=== PATIENT | male | born 1935 | race Caucasian/White ===

== ENCOUNTER 2018-02-22 13:01 | Emergency (ER) | payer OTHER, BC ==
[~2018-02-22] VITALS: Ht 182.9 cm; Wt 105.8 kg
[2018-02-22 13:23] VITALS: Ht 182.9 cm; Wt 105.8 kg
[2018-02-22] MEDS ORDERED: XYLOCAINE 1%/SOD BICARB 20 ML VIAL INFIL ONE (13:45)
--- NOTE | 2018-02-22 14:03 | EMERGENCY ROOM VISIT NOTE ---
ED Visit Note First contact with patient: 13:38 I have seen and examined this patient with Dung Munoz and generally agree with the treatment plan as discussed. Current/Historical Medications Miscellaneous Medications None (Patient States No Home Meds) Allergies Coded Allergies: No Known Allergies (Unverified , NONE, 11/22/10) Vital Signs Date Time Temp Pulse Resp B/P (MAP) Pulse Ox O2 Delivery O2 Flow Rate FiO2 02/22/18 13:23 36.6 72 20 127/66 95 Room Air Departure Information Referrals Dung Way III, M.D. (PCP) Patient Instructions [facility]
[2018-02-22] MEDS ORDERED: DIPHTHERIA/TETANUS/PERTUSSIS 0.5 ML SYR/VIAL IM. ONE (15:00)
[2018-02-22 15:27] VITALS: BP 139/76; PULSE 58; TEMP 36.6; O2SAT 98
--- NOTE | 2018-02-22 18:03 | EMERGENCY ROOM VISIT NOTE ---
ED Visit Note First contact with patient: 13:38 Chief Complaint: I cut my left ring finger. History of Present Illness: Mr. Murphy is a 82-year-old white male who ambulates into the ED complaining of left ring finger laceration. Patient reports approximately 1 hour ago he accidentally cut the distal aspect of the palmar surface of the distal phalanx with a pen knife. He reports he attempted to control bleeding prior to arrival at the hospital but has been unsuccessful; he reports he is on Xarelto for his atrial fibrillation. He also reports he did not clean his wound. Associated with his wound he reports she has a stinging pain over the distal left ring finger. He rates his discomfort 2/10. His pain is non-radiating. His pain worsens with palpation. He has not identified any alleviating factors related to the pain. He reports she has not taken any medication for pain prior to arrival at the hospital. He denies any associated symptoms including finger weakness/numbness/tingling Review of Systems: As noted above in history of present illness. Past Medical History: As previously noted. Current Medications: As previously noted. Allergies to Medications: Patient denies. Social History: Patient is not currently employed; he feels safe in his home environment; he denies tobacco and alcohol use. Tetanus Immunization Status: Patient reports up-to-date. Physical Examination: Vital Signs: Date Time Temp Pulse Resp B/P (MAP) Pulse Ox O2 Delivery O2 Flow Rate FiO2 02/22/18 15:27 36.6 58 16 139/76 98 02/22/18 13:23 36.6 72 20 127/66 95 Room Air GENERAL: 82-year-old male in mild distress due to pain, nontoxic-appearing, afebrile and hemodynamically stable. NEUROLOGICAL: Awake, alert and oriented to person, place and time. Answering questions appropriately and following commands. SKIN: Warm, dry and pink. Left ring finger: 2.8 cm full-thickness laceration over the distal phalanx of the finger with active bleeding. LEFT RING FINGER: Soft tissue injury as noted above under SKIN. No gross bony deformity. Full range of motion in flexion and extension of the MCP, PIP and DIP joints against resistance. Able to distinguish light sensations to all dermatomes. Capillary refill is brisk. ED Course: Patient is assessed as noted above. Patient's medication list was reviewed Wound Repair: Complexity: Basic Verbal consent was obtained after the risks and benefits were explained. The skin was prepped with betadine and a sterile field set. Wound edges of the wound was anesthetized with 2.1 ml buffered 1% lidocaine. The wound was explored for foreign bodies and none found. Copious irrigation was performed using sterile saline. With direct pressure the bleeding subsided. Debridement was not performed. The wound edges were approximated using 5-0 Ethilon with 6 simple interrupted sutures. Hemostasis and excellent approximation was achieved. Antibacterial ointment and a sterile dressing applied. No complications and the patient tolerated the procedure well. Patient was educated about tonight's findings and instructed on his treatment plan; he verbalizes understanding and agreement with this plan. Clinical Impression: Laceration of the left index finger Disposition: Patient discharged home in stable condition; prior to departure he was reassessed and subjectively reported he was pain-free. Plan: Comfort measures, wound care, and signs of infection were discussed with the patient. Patient was encouraged to follow-up with PCP or return to the ED for signs of infection and/or suture removal in 10-12 days.
== END 2018-02-22 15:31 | disposition home or self-care (01) ==
LOC: C.EDB 13:03 → C.EDD 15:31
DX: S61.215A Laceration without foreign body of left ring finger without damage to nail, initial encounter (principal); W26.0XXA Contact with knife, initial encounter; I48.91 Unspecified atrial fibrillation; Z79.01 Long term (current) use of anticoagulants; Z23 Encounter for immunization

== ENCOUNTER 2022-05-29 07:20 | Observation (INO) ==
[2022-05-29] MEDS ORDERED: SODIUM CHLORIDE 0.9% 1000ML 1,000 ML IV ONE (07:28)
--- NOTE | 2022-05-29 07:30 | Emergency Department Note ---
Impression & Plan Dizziness, Elevated troponin, PAF (paroxysmal atrial fibrillation) ED Provider Note NAME: ABBE NICHOLS AGE: 86 SEX: M : 1935 ARRIVES VIA: Ambulance INFORMANT: Patient, EMS ED PROVIDER(S): Jagdish Hickey DO CHIEF COMPLAINT: Lightheaded HPI: Patient is an 86-year-old gentleman who presents to the ER for feeling weak. This started last night when he was going to bed. He checked his blood pressure and systolic blood pressures were 140s. He notes his baseline is about 120 and felt that this was slightly higher than where he normally runs. Last ni ght he had trouble sleeping and had a very restless night. He believes he only slept about 3 hours. He denies any headache or change in vision. He felt a little hot in his neck and upper chest but denies any chest pain or heaviness. No shortness of breath arm or jaw pain. He notes sometimes this happens when his A. fib goes too fast. He did initially feel queasy in his stomach. Denies any belly pain. No dysuria urgency or frequency. No weakness in the arms or legs. No other exacerbating or remitting factors. 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 ROS: See above HPI for pertinent positives & negatives. A total of 10 systems reviewed and were otherwise negative. PAST MEDICAL HISTORY:See Below PAST SURGICAL HISTORY:See Below FAMILY HISTORY:See Below SOCIAL HISTORY:See Below HOME MEDICATIONS:See Below ALLERGIES:See Below VITALS:See Below PHYSICAL EXAMINATION: GENERAL: Sitting up in bed, alert, well appearing, well nourished, no distress, non-toxic EYE EXAM: normal conjunctiva. PERRL and EOM's grossly intact. OROPHARYNX: no exudate, no erythema, lips, buccal mucosa, and tongue normal and mucous membranes are moist NECK: supple, no nuchal rigidity, no adenopathy, non-tender LUNGS: Clear to auscultation. Normal chest wall mechanics HEART: no murmurs, S1 normal and S2 normal ABDOMEN: abdomen soft, non-tender, normo-active bowel sounds, no masses, no rebound or guarding. BACK: Back is symmetrical on inspection and there is no deformity, no midline tenderness, no CVA tenderness. SKIN: no rashes and no bruising UPPER EXTREMITIES: upper extremities are grossly normal. LOWER EXTREMITIES: No pitting edema. NEURO EXAM: Normal sensorium, cranial nerves II-XII intact, normal speech, no weakness of arms, no weakness of legs. No drift. Finger to nose intact. Gross sensation intact. MEDICAL DECISION MAKING: Patient is an 86-year-old gentleman with a past medical history of paroxysmal A. fib, hypertension, hyperlipidemia and CKD that presents the ER for warmness in his chest and feeling weak and tired. IV was established blood work was obtained. Labs show no significant leukocytosis or anemia. BMP was unremarkable with exception of a slightly elevated troponin at 20.7. T bili mildly up at 1.3. TSH at 5.1. UA was clean. COVID was negative. Chest x-ray however unremarkable. EKG was not slightly changed from previous EKG when he was found to be in A. fib. He was updated bedside. With the bump in troponin to discussed with the hospitalist for further observation. Triage Nursing notes reviewed. Limited review of prior medical records performed Vital Signs: reviewed and remarkable for no significant abnormalities Differential diagnosis: Differential diagnosis includes etiologies such as benign positional vertigo, dehydration, hypovolemia, anemia, tumor, infection, hypoglycemia, electrolyte abnormalities, cardiac sources, intracerebral event, toxicologic, neurological, as well as others were entertained. ER treatment provided: See below Diagnostics interpreted by me: ECG: A. fib rate of 72 Left axis No PVCs QTC [address] wave changes in aVL Cardiac Monitoring: An order was placed for continuous cardiac monitoring. The monitor shows a rate of 80 with sinus rhythm. Laboratory studies: As stated above and show below. Imaging studies: Portable AP upright 1 view the chest was unremarkable Consultation(s): [facility] Procedures: none Critical Care: None Past Med/Surg History Medical History CKD (chronic kidney disease) stage 3, GFR 30-59 ml/min Diastolic dysfunction GERD (gastroesophageal reflux disease) History of cataract HLD (hyperlipidemia) HTN (hypertension) PAF (paroxysmal atrial fibrillation) Surgical History History of colonoscopy History of hernia repair History of laparoscopic cholecystectomy History of tonsillectomy Hx of cataract extraction Family History (Updated 05/29/22 @ 10:32 by Shu Call PA-C) Other Family history non-contributory Social History (Updated 05/29/22 @ 10:32 by Shu Call PA-C) Smoking Status: Never smoker Hx Alcohol Use: No Hx Substance Use: No Preferred Language: [place] Communication Ability: Effective 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 Beliefs That Will Affect Care: None marital status: / Current Living Situation: Family Current Living Situation Comment: with Alejandra-daughter Other Information That Helps Us Care for You: No Feels Safe at Home: Yes Safety Concerns: Feels Safe At This Time Assistive Devices: Glasses Allergies Allergies Allergy/AdvReac Type Severity Reaction Status Date / Time No Known Allergies Allergy NONE Unverified 05/29/22 09:41 Home Meds Home Medications Medication Instructions Recorded Confirmed apixaban 5 mg tablet (Eliquis) 5 mg PO BID 05/29/22 05/29/22 ascorbic acid (vitamin C) 500 mg 500 mg PO DAILY 05/29/22 05/29/22 tablet (Vitamin C) aspirin 81 mg tablet,delayed 81 mg PO MOWEFR 05/29/22 05/29/22 release cholecalciferol (vitamin D3) 10 10 mcg PO DAILY 05/29/22 05/29/22 mcg (400 unit) capsule (Vitamin D3) metoprolol succinate 50 mg 25 mg PO PM 05/29/22 05/29/22 tablet,extended release 24 hr metoprolol succinate 50 mg 50 mg PO DAILY 05/29/22 05/29/22 tablet,extended release 24 hr omeg3-epa 150 mg-dha 100 mg-fish 1 cap PO QAM 05/29/22 05/29/22 oil-flaxseed oil 333 mg-E 61 unit cap simvastatin 40 mg tablet 20 mg PO DAILY 05/29/22 05/29/22 triamterene 37.5 1 tab PO UD PRN Edema 05/29/22 05/29/22 mg-hydrochlorothiazide 25 mg tablet Results & Data (ED) Vital Signs Vital Signs - 24 hr 05/29/22 07:26 05/29/22 07:28 05/29/22 07:30 Temperature 36.6 C Temperature Source Oral Pulse Rate 83 Pulse Rate [Apical] Pulse Rate from SpO2 Sensor Pulse Rhythm [Apical] Pulse Strength [Apical] Respiratory Rate 17 Respiratory Effort / Characteristics Non-Labored Respiratory Depth Normal Respiratory Pattern Regular Blood Pressure 170/99 H 172/96 H Blood Pressure [Right Arm] Blood Pressure Mean 122 121 Blood Pressure Mean [Right Arm] Blood Pressure Position [Right Arm] Pulse Oximetry 95 96 Oxygen Delivery Method Room Air Room Air Sepsis Recent Fever Within 48 Hours No Sepsis New/Unexplained Change in Mental Status N/A Sepsis Action Taken by Nursing No Action Required 05/29/22 07:30 05/29/22 08:02 05/29/22 08:02 Temperature Temperature Source Pulse Rate 74 73 Pulse Rate [Apical] Pulse Rate from SpO2 Sensor 73 72 Pulse Rhythm [Apical] Pulse Strength [Apical] Respiratory Rate 20 20 Respiratory Effort / Characteristics Respiratory Depth Respiratory Pattern Blood Pressure 137/99 Blood Pressure [Right Arm] Blood Pressure Mean 111 Blood Pressure Mean [Right Arm] Blood Pressure Position [Right Arm] Pulse Oximetry 97 97 Oxygen Delivery Method Room Air Room Air Sepsis Recent Fever Within 48 Hours Sepsis New/Unexplained Change in Mental Status Sepsis Action Taken by Nursing 05/29/22 08:30 05/29/22 08:30 05/29/22 09:00 Temperature Temperature Source Pulse Rate 59 L Pulse Rate [Apical] Pulse Rate from SpO2 Sensor 67 Pulse Rhythm [Apical] Pulse Strength [Apical] Respiratory Rate 20 Respiratory Effort / Characteristics Respiratory Depth Respiratory Pattern Blood Pressure 166/82 H 152/83 H Blood Pressure [Right Arm] Blood Pressure Mean 110 106 Blood Pressure Mean [Right Arm] Blood Pressure Position [Right Arm] Pulse Oximetry 98 Oxygen Delivery Method Room Air Sepsis Recent Fever Within 48 Hours Sepsis New/Unexplained Change in Mental Status Sepsis Action Taken by Nursing 05/29/22 09:00 05/29/22 09:23 05/29/22 09:30 Temperature Temperature Source Pulse Rate 62 Pulse Rate [Apical] 81 Pulse Rate from SpO2 Sensor 66 Pulse Rhythm [Apical] Irregular Pulse Strength [Apical] Normal Respiratory Rate 19 16 Respiratory Effort / Characteristics Non-Labored Spontaneous Respiratory Depth Normal Respiratory Pattern Regular Blood Pressure 160/98 H Blood Pressure [Right Arm] 173/103 H Blood Pressure Mean 118 Blood Pressure Mean [Right Arm] 126 Blood Pressure Position [Right Arm] Semi-fowlers Pulse Oximetry 96 97 Oxygen Delivery Method Room Air Room Air Sepsis Recent Fever Within 48 Hours Sepsis New/Unexplained Change in Mental Status Sepsis Action Taken by Nursing 05/29/22 09:30 Temperature Temperature Source Pulse Rate 75 Pulse Rate [Apical] Pulse Rate from SpO2 Sensor 70 Pulse Rhythm [Apical] Pulse Strength [Apical] Respiratory Rate 21 Respiratory Effort / Characteristics Respiratory Depth Respiratory Pattern Blood Pressure Blood Pressure [Right Arm] Blood Pressure Mean Blood Pressure Mean [Right Arm] Blood Pressure Position [Right Arm] Pulse Oximetry 97 Oxygen Delivery Method Room Air Sepsis Recent Fever Within 48 Hours Sepsis New/Unexplained Change in Mental Status Sepsis Action Taken by Nursing Laboratory Data Result diagrams: 05/29/22 07:35 05/29/22 07:35 Lab Results 05/29/22 05/29/22 05/29/22 Range/Units 07:35 07:35 07:35 WBC 4.86 (4.8-10.8) K/ul RBC 5.05 (4.63-6.08) M/uL Hgb 15.4 (14.0-18.0) g/dl Hct 46.6 (40.1-51.0) % MCV 92.3 (80.0-100.0) fL MCH 30.5 (25.0-34.0) pg MCHC 33.0 (32.0-36.0) g/dL RDW Std Deviation 42.9 (36.4-46.3) fL RDW Coeff of Mark 12.7 (11.5-14.5) % Plt Count 154 (130-400) K/uL MPV 10.0 (9.4-12.4) fL Immature Gran % (Auto) 0.6 % Neut % (Auto) 64.8 % Lymph % (Auto) 20.2 % [place] % (Auto) 10.5 % Eos % (Auto) 2.9 % Baso % (Auto) 1.0 % Neut # (Auto) 3.15 (1.4-6.5) K/uL Lymph # (Auto) 0.98 L (1.2-3.4) K/uL [place] # (Auto) 0.51 (0.24-0.82) K/uL Eos # (Auto) 0.14 (0-0.50) K/uL Baso # (Auto) 0.05 (0-0.2) K/uL Immature Gran # (Auto) 0.03 H (0.00-0.02) K/uL Sodium 140 (136-145) mmol/L Potassium 3.6 (3.5-5.1) mmol/L Chloride 107 (98-107) mmol/L Carbon Dioxide 27 (21-32) mmol/L Anion Gap 6 (3-11) BUN 16 (6-23) mg/dl Creatinine 1.04 (0.6-1.4) mg/dl Est Cr Clr Drug Dosing 66.9 ml/min Est GFR ( Amer) 75.5 ml/min Est GFR (Non-Af Amer) 65.2 ml/min BUN/Creatinine Ratio 15.4 (10-20) Glucose 114 H (70-99(Fasting)) mg/dl Calcium 9.3 (8.5-10.1) mg/dl Magnesium (1.7-2.4) mg/dl Total Bilirubin 1.3 H (0.2-1.0) mg/dl AST 24 (13-39) U/L ALT 21 (7-52) U/L Alkaline Phosphatase 58 (34-104) U/L Troponin I High Sens 20.7 H (0-20) pg/ml Total Protein 6.9 (6.0-8.3) gm/dl Albumin 4.1 (3.4-5.0) gm/dl Globulin 2.8 (2.5-4.0) gm/dl Albumin/Globulin Ratio 1.5 (0.9-2) Lipase 15 (11-82) U/L TSH (0.300-4.500) uIu/ml Free T4 (0.61-1.60) ng/dl Urine Color Urine Appearance (Clear) Urine pH (4.5-7.5) Ur Specific [place] (1.000-1.030) Urine Protein (Negative) Urine Glucose (UA) (Negative) Urine Ketones (Negative) Urine Blood (Negative) Urine Nitrite (Negative) Urine Bilirubin (Negative) Urine Urobilinogen (Negative) Ur Leukocyte Esterase (Negative) Urine WBC (Auto) (0-5) /hpf Urine RBC (Auto) (0-4) /hpf U Hyaline Cast (Auto) (0-5) /lpf U Epithel Cells (Auto) (0-5) /lpf Urine Bacteria (Auto) (Negative) SARS-CoV-2, RNA, NAAT NEGATIVE (NEGATIVE) 05/29/22 05/29/22 05/29/22 Range/Units 07:35 07:35 09:17 WBC (4.8-10.8) K/ul RBC (4.63-6.08) M/uL Hgb (14.0-18.0) g/dl Hct (40.1-51.0) % MCV (80.0-100.0) fL MCH (25.0-34.0) pg MCHC (32.0-36.0) g/dL RDW Std Deviation (36.4-46.3) fL RDW Coeff of Mark (11.5-14.5) % Plt Count (130-400) K/uL MPV (9.4-12.4) fL Immature Gran % (Auto) % Neut % (Auto) % Lymph % (Auto) % [place] % (Auto) % Eos % (Auto) % Baso % (Auto) % Neut # (Auto) (1.4-6.5) K/uL Lymph # (Auto) (1.2-3.4) K/uL [place] # (Auto) (0.24-0.82) K/uL Eos # (Auto) (0-0.50) K/uL Baso # (Auto) (0-0.2) K/uL Immature Gran # (Auto) (0.00-0.02) K/uL Sodium (136-145) mmol/L Potassium (3.5-5.1) mmol/L Chloride (98-107) mmol/L Carbon Dioxide (21-32) mmol/L Anion Gap (3-11) BUN (6-23) mg/dl Creatinine (0.6-1.4) mg/dl Est Cr Clr Drug Dosing ml/min Est GFR ( Amer) ml/min Est GFR (Non-Af Amer) ml/min BUN/Creatinine Ratio (10-20) Glucose (70-99(Fasting)) mg/dl Calcium (8.5-10.1) mg/dl Magnesium 2.0 (1.7-2.4) mg/dl Total Bilirubin (0.2-1.0) mg/dl AST (13-39) U/L ALT (7-52) U/L Alkaline Phosphatase (34-104) U/L Troponin I High Sens (0-20) pg/ml Total Protein (6.0-8.3) gm/dl Albumin (3.4-5.0) gm/dl Globulin (2.5-4.0) gm/dl Albumin/Globulin Ratio (0.9-2) Lipase (11-82) U/L TSH 5.125 H (0.300-4.500) uIu/ml Free T4 0.84 (0.61-1.60) ng/dl Urine Color Yellow Urine Appearance Cloudy A (Clear) Urine pH 5.5 (4.5-7.5) Ur Specific [place] 1.012 (1.000-1.030) Urine Protein Negative (Negative) Urine Glucose (UA) Negative (Negative) Urine Ketones Trace H (Negative) Urine Blood Negative (Negative) Urine Nitrite Negative (Negative) Urine Bilirubin Negative (Negative) Urine Urobilinogen Negative (Negative) Ur Leukocyte Esterase Negative (Negative) Urine WBC (Auto) 1-5 (0-5) /hpf Urine RBC (Auto) 0-4 (0-4) /hpf U Hyaline Cast (Auto) 1-5 (0-5) /lpf U Epithel Cells (Auto) 5-10 H (0-5) /lpf Urine Bacteria (Auto) Negative (Negative) SARS-CoV-2, RNA, NAAT (NEGATIVE) Administered Medications Discontinued Medications Sodium Chloride (Nss 1000ml) 1,000 mls @ 999 mls/hr IV .[id number] ONE Stop: 05/29/22 08:28 Last Infusion: 05/29/22 09:09 Dose: 0 mls/hr Documented By: Admin: 05/29/22 08:00 Dose: 999 mls/hr Documented By: DIDI Potassium Chloride (Potassium Chloride Crtab 20 Meq Tabcr) 40 meq PO NOW STA Stop: 05/29/22 10:28 Last Admin: 05/29/22 11:02 Dose: 40 meq Documented By: DIDI Imaging Data Radiologist's Impression: Chest X-Ray 05/29/22 07:28 XR chest 1V portable HISTORY: Atypical Chest Pain COMPARISON: Chest 11/29/2010. FINDINGS: No pneumothorax. No pleural effusions. The heart remains borderline enlarged. No new focal lung consolidations to suggest pneumonia. No evidence for pulmonary edema. IMPRESSION: No acute process. ACT 112: Negative or not required by law. Electronically signed by: Gael Motta M.D. 05/29/2022 8:[address] 05/29/22 07:28 CT head/brain wo con CLINICAL HISTORY: lightheaded Technique: Contiguous axial CT images of the head were acquired from the base of the skull to the vertex without intravenous contrast administration. Images were viewed in brain, subdural and bone windows. Automated dose lowering techniques and/or adjustment according to patient size were utilized for this exam. Comparison: None available at the time of this dictation. Findings: The ventricles, basal cisterns, and cerebral sulci are normal. There is no acute intracranial hemorrhage or evidence of acute territorial infarction. Neither mass effect, shift of the midline structures, nor abnormal extra-axial fluid collections are shown. Imaged portions of the paranasal sinuses and mastoid air cells are clear. The orbits appear normal. There are no acute fractures of the calvaria or scalp swelling. Impression: No acute intracranial hemorrhage, no evidence of acute territorial infarction or other acute intracranial disease process. ACT 112: Negative or not required by law. Electronically signed by: Ramírez Eugene M.D. 05/29/2022 7:58 AM Discharge Plan Visit Data Chief Complaint: Weakness ED Provider: Jagdish Hickey Discharge Problem: Dizziness, Elevated troponin, PAF (paroxysmal atrial fibrillation) Patient Disposition: Admitted As Inpatient Discharge Instructions Interventions: ED Discharge Assessment Last Done: 05/29/22 11:24
[2022-05-29 07:57] LABS: Basophils # (auto) 0.05 K/uL (0-0.2); Eosinophils # (auto) 0.14 K/uL (0-0.50); Eosinophils % (auto) 2.9 %; Hematocrit (blood only) 46.6 % (40.1-51.0); Hemoglobin 15.4 g/dl (14.0-18.0); Immature Granulocytes # (auto) 0.03 K/uL (0.00-0.02); Immature Granulocytes % (auto) 0.6 %; Lymphocytes # (auto) 0.98 K/uL (1.2-3.4); Lymphocytes % (auto) 20.2 %; Mean Corpuscular Hemoglobin 30.5 pg (25.0-34.0); Mean Corpuscular Volume 92.3 fL (80.0-100.0); Monocytes # (auto) 0.51 K/uL (0.24-0.82); Monocytes % (auto) 10.5 %; Neutrophils # (auto) 3.15 K/uL (1.4-6.5); Neutrophils % (auto) 64.8 %; Platelet Count 154 K/uL (130-400); RDW Coefficient of Variation 12.7 % (11.5-14.5); RDW Standard Deviation 42.9 fL (36.4-46.3); Red Blood Count 5.05 M/uL (4.63-6.08); White Blood Count 4.86 K/ul (4.8-10.8)
--- NOTE | 2022-05-29 08:00 | CT Scan Report ---
CT head/brain wo con CLINICAL HISTORY: lightheaded Technique: Contiguous axial CT images of the head were acquired from the base of the skull to the frans[place] rosalba without intravenous contrast administration. Images were viewed in brain, subdural and bone [facility]. Automated dose lowering techniques and/or adjustment according to patient size were utilized for this exam. Comparison: None available at the time of this dictation. Findings: The ventricles, basal cisterns, and cerebral sulci are normal. There is no acute intracranial hemorrh age or evidence of acute territorial infarction. Neither mass effect, shift of the midline structures , nor abnormal extra-axial fluid collections are shown. Imaged portions of the paranasal sinuses and mastoid air cells are clear. The orbits appear normal. There are no acute fractures of the calvaria or scalp swelling. Impression: No acute intracranial hemorrhage, no evidence of acute territorial infarction or other acute intracra nial disease process. ACT 112: Negative or not required by law. Electronically signed by: Ramírez Eugene M.D. 05/29/2022 7:58 AM
[2022-05-29 08:24] LABS: Albumin Globulin Ratio 1.5 (0.9-2); Albumin Level 4.1 gm/dl (3.4-5.0); BUN Creatinine Ratio 15.4 (10-20); Bilirubin,Total 1.3 mg/dl (0.2-1.0); Calcium 9.3 mg/dl (8.5-10.1); Creatinine Clr Calc Pharmacy 66.9 ml/min; Est GFR (African American) 75.5 ml/min; Est GFR (Non-African American) 65.2 ml/min; Globulin 2.8 gm/dl (2.5-4.0); Potassium 3.6 mmol/L (3.5-5.1); Total Protein 6.9 gm/dl (6.0-8.3); Troponin I High Sensitivity 20.7 pg/ml (0-20)
--- NOTE | 2022-05-29 08:29 | XRay Report ---
XR chest 1V portable HISTORY: Atypical Chest Pain COMPARISON: Chest 11/29/2010. FINDINGS: No pneumothorax. No pleural effusions. The heart remains borderline enlarged. No new focal lung consolidations to suggest pneumonia. No evidence for pulmonary edema. IMPRESSION: No acute process. ACT 112: Negative or not required by law. Electronically signed by: Gael Motta M.D. 05/29/2022 8:27 AM
[2022-05-29 09:36] LABS: Appearance Urine Cloudy (Clear); Bacteria Urine Automated Negative (Negative); Bilirubin Urine Negative (Negative); Blood Urine Negative (Negative); Color Urine Yellow; Glucose Urine UA Negative (Negative); Ketones Urine Trace (Negative); Leukocyte Esterase Urine Negative (Negative); Nitrite Urine Negative (Negative); Protein Urine Negative (Negative); RBC Urine Automated 0-4 /hpf (0-4); Specific Gravity Urine 1.012 (1.000-1.030); Urobilinogen Urine Negative (Negative); pH Urine 5.5 (4.5-7.5)
[2022-05-29 10:26] LABS: Thyroid Stimulating Hormone 5.125 uIu/ml (0.300-4.500)
[2022-05-29] MEDS ORDERED: POTASSIUM CHLORIDE CRTAB 20 MEQ TABCR PO STA (10:27)
--- NOTE | 2022-05-29 10:43 | History & Physical Report ---
Date of Service May 29, 2022 Assessment & Plan (1) PAF (paroxysmal atrial fibrillation): (2) Elevated troponin: (3) HTN (hypertension): (4) HLD (hyperlipidemia): (5) CKD (chronic kidney disease) stage 3, GFR 30-59 ml/min: Plan This is an 86-year-old male who has a significant past medical history of PAF anticoagulated on Eliquis, HTN, HLD, CKD stage III, diastolic dysfunction, GERD, chronic ventricular ectopy who presents to ED secondary to ill feeling and lightheadedness for a few hours prior to arrival. Pt presents to ED with a few hours of ill feeling, "hot chest and neck," sensation and feeling off balance. Hx of PAF and is now back in Afib, rate controlled. Took his a.m. dose of metoprolol and eliquis; however over the weekend did miss 2 doses of metoprolol succ 25mg in the evening as well as eliquis due to being out of town. Sx may be in setting of missed medication, but pt states he felt himself in afib 5 x last week as well which is unusual for him. Will admit for further work up. PAF - currently in rate controlled afib elevated troponin admit to PCU obtain echo last echocardiogram in epic 2017 preserved EF 55-59%, mild TR cycle trops, doubt ACS, monitor on tele consult cardiology continue metoprolol and eliquis give 40meq KCL x 1 now, obtain mag level keep K and Mag > 4.0 and 2.0 respectively obtain TSH HTN continue metoprolol BP elevated in ED will monitor and add prn if continues to be elevated on floor HLD continue statin CKD 3 bun/cr stable monitor renal fxn DVT ppx: Eliquis Dispo: PCU DNR/DNI PCP: Seamus Pt was seen and examined in collaboration with Dr. Torres, please see addendum History of Present Illness Chief Complaint: ill feeling and lightheadedness x a few hours. Primary Care Provider: Dung Way MD This is an 86-year-old male who has a significant past medical history of PAF anticoagulated on Eliquis, HTN, HLD, CKD stage III, diastolic dysfunction, GERD, chronic ventricular ectopy who presents to ED secondary to ill feeling and lig htheadedness for a few hours prior to arrival. His daughter is at bedside. Over the weekend he felt quite well. Him and his daughter went and stayed in [place] and went to a curve game. Yesterday, "I was a ball of energy." He did many tasks around the house and outside as he had the energy to do so. Last evening he started to begin to feel unwell. Throughout the night he felt very hot and described a sensation of having a, "hot chest," that also went to his neck. He denied any refugio chest pain or pressure. When his daughter went to work this morning he got up and felt generally lightheaded and off-balance. Because of this he summoned EMS. He states when EMS arrived he started to feel a bit better. He did take his medications this morning; however, he does admit over the weekend he did miss his afternoon dose of metoprolol on Sunday and Sunday and he split a dose of Eliquis in half to cover his evening dose on Sunday, but missed his morning dose on Sunday. He does have history of A. fib and is able to tell when he goes in and out of it. He states last week he went in approximately 5 times which is a lot more than usual. Other than this week and he is otherwise been compliant with his medications. No other recent illness. Denies fever, chills, sweats, syncope, lightheadedness, chest pain, shortness breath at rest, cough, hemoptysis, PND, orthopnea, nausea, vomiting, abdominal pain, change in bowel or urinary habits. He does have KIDD specifically with hills, but this is not uncommon. He does live at home with his daughter. He ambulates occasion with a cane but is otherwise independent. In ED patient made hemodynamically stable. alarm security or surveillance monitor and EKG did reveal patient was in rate controlled A. fib. He also mildly elevated troponin at 20.7. Allergies Allergy/AdvReac Type Severity Reaction Status Date / Time No Known Allergies Allergy NONE Unverified 05/29/22 09:41 Home Medications Medication Instructions Recorded Confirmed Type apixaban 5 mg tablet (Eliquis) 5 mg PO BID 05/29/22 05/29/22 History ascorbic acid (vitamin C) 500 mg 500 mg PO DAILY 05/29/22 05/29/22 History tablet (Vitamin C) aspirin 81 mg tablet,delayed 81 mg PO MOWEFR 05/29/22 05/29/22 History release cholecalciferol (vitamin D3) 10 10 mcg PO DAILY 05/29/22 05/29/22 History mcg (400 unit) capsule (Vitamin D3) metoprolol succinate 50 mg 25 mg PO PM 05/29/22 05/29/22 History tablet,extended release 24 hr metoprolol succinate 50 mg 50 mg PO DAILY 05/29/22 05/29/22 History tablet,extended release 24 hr omeg3-epa 150 mg-dha 100 mg-fish 1 cap PO QAM 05/29/22 05/29/22 History oil-flaxseed oil 333 mg-E 61 unit cap simvastatin 40 mg tablet 20 mg PO DAILY 05/29/22 05/29/22 History triamterene 37.5 1 tab PO UD PRN Edema 05/29/22 05/29/22 History mg-hydrochlorothiazide 25 mg tablet Past Med/Surg History Medical History CKD (chronic kidney disease) stage 3, GFR 30-59 ml/min Diastolic dysfunction GERD (gastroesophageal reflux disease) History of cataract HLD (hyperlipidemia) HTN (hypertension) PAF (paroxysmal atrial fibrillation) Surgical History History of colonoscopy History of hernia repair History of laparoscopic cholecystectomy History of tonsillectomy Hx of cataract extraction Family History (Updated 05/29/22 @ 10:32 by Shu Call PA-C) Other Family history non-contributory Social History (Updated 05/29/22 @ 10:32 by Shu Call PA-C) Smoking Status: Never smoker Hx Alcohol Use: No Hx Substance Use: No Preferred Language: Mongolian Communication Ability: Effective marital status: / Current Living Situation: Family Current Living Situation Comment: Lives with daughter Feels Safe at Home: Yes Review of Systems Review of Systems: All systems reviewed & are unremarkable except as noted in HPI & below Physical Exam Physical Exam: Constitutional: WD/WN, vitals as above, NAD, sitting up in bed, pleasant, conversing easily Head: Normocephalic, Atraumatic Eyes: PERRL, conjunctivae normal, anicteric sclerae ENMT: slight hard of hearing, hearing device in place, external ear and nose normal, oropharynx normal Neck: trachea midline, no thyromegaly normal visual inspection Respiratory: normal respiratory effort, lungs clear to auscultation, no wheeze, rales, rhonchi. Normal insp/exp effort, no accessory muscle use Cardiovascular: IRR/IRR, no murmur, no edema Vessels: no JVD or carotid bruit Chest: normal inspection of chest Abdomen: normal bowel sounds, soft, nontender, no hepatosplenomegaly Musculoskeletal: no cyanosis or clubbing, AROM x 4 Skin: no rashes, warm and dry normal turgor Neurologic: PERRL, EOMI, accommodation nl, no face palsy, no dysarthria CN's II-XI intact bilaterally and moves all extremities Psychiatric: A+Ox3, euthymic affect : deferred Results & Data Results & Data ([facility]) Vital Signs (Past 12 Hours) Vital Signs Temp Pulse Pulse Resp BP BP Pulse Ox 05/29/22 09:23 81 16 173/103 H 97 05/29/22 09:00 62 19 96 05/29/22 09:00 152/83 H 05/29/22 08:30 59 L 20 98 05/29/22 08:30 166/82 H 05/29/22 08:02 73 20 97 05/29/22 08:02 137/99 05/29/22 07:30 74 20 97 05/29/22 07:30 172/96 H 05/29/22 07:28 96 05/29/22 07:26 36.6 C 83 17 170/99 H 95 O2 Del Method 05/29/22 09:23 Room Air 05/29/22 09:00 Room Air 05/29/22 09:00 05/29/22 08:30 Room Air 05/29/22 08:30 05/29/22 08:02 Room Air 05/29/22 08:02 05/29/22 07:30 Room Air 05/29/22 07:30 05/29/22 07:28 Room Air 05/29/22 07:26 Room Air Diagnostic Findings Chest X-Ray 05/29/22 07:28 XR chest 1V portable HISTORY: Atypical Chest Pain COMPARISON: Chest 11/29/2010. FINDINGS: No pneumothorax. No pleural effusions. The heart remains borderline enlarged. No new focal lung consolidations to suggest pneumonia. No evidence for pulmonary edema. IMPRESSION: No acute process. ACT 112: Negative or not required by law. Electronically signed by: Gael Motta M.D. 05/29/2022 8:[address] 05/29/22 07:28 CT head/brain wo con CLINICAL HISTORY: lightheaded Technique: Contiguous axial CT images of the head were acquired from the base of the skull to the vertex without intravenous contrast administration. Images were viewed in brain, subdural and bone windows. Automated dose lowering techniques and/or adjustment according to patient size were utilized for this exam. Comparison: None available at the time of this dictation. Findings: The ventricles, basal cisterns, and cerebral sulci are normal. There is no acute intracranial hemorrhage or evidence of acute territorial infarction. Neither mass effect, shift of the midline structures, nor abnormal extra-axial fluid collections are shown. Imaged portions of the paranasal sinuses and mastoid air cells are clear. The orbits appear normal. There are no acute fractures of the calvaria or scalp swelling. Impression: No acute intracranial hemorrhage, no evidence of acute territorial infarction or other acute intracranial disease process. ACT 112: Negative or not required by law. Electronically signed by: Ramírez Eugene M.D. 05/29/2022 7:58 AM Medications Administered Medication List Discontinued Medications Sodium Chloride (Nss 1000ml) 1,000 mls @ 999 mls/hr IV .Q1H1M ONE Stop: 05/29/22 08:28 Last Infusion: 05/29/22 09:09 Dose: 0 mls/hr Documented By: Admin: 05/29/22 08:00 Dose: 999 mls/hr Documented By: DIDI ECG Rate (beats per minute): 72 Rhythm: atrial fibrillation COVID-19 Results Results COVID-19 Adm Lab Results: RBC 5.05 M/uL (4.63-6.08) 05/29/22 WBC 4.86 K/ul (4.8-10.8) 05/29/22 Hgb 15.4 g/dl (14.0-18.0) 05/29/22 Hct 46.6 % (40.1-51.0) 05/29/22 Plt Count 154 K/uL (130-400) 05/29/22 Neutrophils (%) (Auto) 64.8 % 05/29/22 Lymphocytes (%) (Auto) 20.2 % 05/29/22 Monocytes # (Auto) 0.51 K/uL (0.24-0.82) 05/29/22 Eosinophils # (Auto) 0.14 K/uL (0-0.50) 05/29/22 Immature Granulocyte % (Auto) 0.6 % 05/29/22 Neutrophils # (Auto) 3.15 K/uL (1.4-6.5) 05/29/22 Lymphocytes # (Auto) 0.98 K/uL (1.2-3.4) L 05/29/22 Monocytes # (Auto) 0.51 K/uL (0.24-0.82) 05/29/22 Eosinophils # (Auto) 0.14 K/uL (0-0.50) 05/29/22 Basophils # (Auto) 0.05 K/uL (0-0.2) 05/29/22 Immature Granulocyte # (Auto) 0.03 K/uL (0.00-0.02) H 05/29 Na 140 mmol/L (136-145) 05/29/22 K 3.6 mmol/L (3.5-5.1) 05/29/22 Cl 107 mmol/L (98-107) 05/29/22 CO2 27 mmol/L (21-32) 05/29/22 Anion Gap 6 (3-11) 05/29/22 BUN 16 mg/dl (6-23) 05/29/22 Creatinine 1.04 mg/dl (0.6-1.4) 05/29/22 BUN/Creatinine Ratio 15.4 (10-20) 05/29/22 Glucose Level 114 mg/dl (70-99(Fasting)) H 05/29/22 Ca 9.3 mg/dl (8.5-10.1) 05/29/22 Total Bilirubin 1.3 mg/dl (0.2-1.0) H 05/29/22 AST/SGOT 24 U/L (13-39) 05/29/22 ALT/SGPT 21 U/L (7-52) 05/29/22 Alkaline Phosphatase 58 U/L (34-104) 05/29/22 Total Protein 6.9 gm/dl (6.0-8.3) 05/29/22 Albumin 4.1 gm/dl (3.4-5.0) 05/29/22 Globulin 2.8 gm/dl (2.5-4.0) 05/29/22 Albumin/Globulin Ratio 1.5 (0.9-2) 05/29/22 SARS-CoV-2, RNA, NAAT NEGATIVE (NEGATIVE) 05/29/22 Chest X-Ray 05/29/22 Code Status & VTE Plan Code Status DNR/DNI VTE Prophylaxis Plan VTE Prophylaxis will be ordered: No Supervising Physician Co-Signing Physician Notes Patient was seen and examined with Shu PALOMO at bedside. Daughter at bedside. Chart reviewed. Case discussed with Shu and agree with the documentation above in regards to HPI, examination, assessment and plan. In summary, this is a 86 year old male with h/o PAF on metoprolol and eliquis who presented to the ED with lightheadedness and feeling ill likely from symptomatic Afib. He missed his pm doses of metoprolol for the past 2 days due to not having enough medication. In the ED, he is afebrile, hemodynamically stable, rate controlled Afib. On exam, sitting comfortably in bed, AAO, chest clear, irregular heart rate but normal heart sounds, abd benign, LLE on compression stocking for h/o chronic mild dependent edema. Labs unremarkable except for minimally elevated trop. Agree with tele, cardio consult for possible cardioversion if doesn't convert to NSR and remains symptomatic, serial trop, echo. Continue betablocker and eliquis. Rest as per the note above.
[2022-05-29 11:08] LABS: T4 Free Thyroxine 0.84 ng/dl (0.61-1.60)
[2022-05-29] MEDS ORDERED: ALUMINUM/MAGNESIUM SUSP 30 ML UDC PO PRN (12:00)
[2022-05-29] MEDS ORDERED: POLYETHYLENE (MIRALAX) 17 GM PACK PO PRN (12:00)
[2022-05-29] MEDS ORDERED: ACETAMINOPHEN 325 MG TAB PO PRN (12:00)
[2022-05-29] MEDS ORDERED: MAGNESIUM HYDROXIDE SUSP 30 ML UDC PO PRN (12:00)
[2022-05-29] MEDS ORDERED: ONDANSETRON INJ 2 MG/ML 2 ML VIAL IV PRN (12:00)
--- NOTE | 2022-05-29 12:57 | Electrocardiogram Report ---
Test Reason : Blood Pressure : / mmHG Vent. Rate : 072 BPM Atrial Rate : 326 BPM P-R Int : 000 ms QRS Dur : 100 ms QT Int : 376 ms P-R-T Axes : 000 -30 036 degrees QTc Int : 411 ms Atrial fibrillation Left axis deviation Minimal voltage criteria for LVH, may be normal variant Nonspecific ST abnormality Abnormal ECG When compared with ECG of 02-DEC-2010 06:44, Atrial fibrillation has replaced Sinus rhythm T wave inversion no longer evident in Inferior leads Confirmed by Ric Caldera ([id number]) on 05/29/2022 12:57:12 PM Referred By: REFERRED SELF Confirmed By:Ric Caldera
--- NOTE | 2022-05-29 14:27 | Cardiology Consultation ---
Date of Consultation May 29, 2022 Assessment & Plan (1) PAF (paroxysmal atrial fibrillation): (2) HTN (hypertension): Plan Patient is a 86-year-old male with medical history as listed above notable for paroxysmal atrial fibrillation with borderline tachybradycardia syndrome, diasto lic dysfunction, hypertension. Patient presents not feeling well after missing 2 doses of evening metoprolol while traveling over the weekend. No acute findings on echocardiogram or EKG that patient in atrial fibrillation with controlled ventricular response rate. Patient has not observed bradycardia arrhythmias but did experience 2 sensations of warm flushing chest throat tightness. Symptoms of concern may be secondary to missed doses of medication. Tachyarrhythmias not previously observed but may need to exclude bradycardia arrhythmia if lapsing in and out of atrial fibrillation Plan: Continue telemetry overnight to exclude bradycardia arrhythmias. Maintain anticoagulation with Eliquis Continue current dosing of metoprolol, discontinue vitamin C and fish oil Add losartan 25 mg while being observed in hospital for further hypertension control. History of Present Illness Reason for Consultation: Paroxysmal atrial fibrillation Requesting Physician: Alex Torres MD Attending Physician: Alex Torres MD History of Present Illness Patient is an 86-year-old male whose with ongoing medical issues which include 1.Paroxysmal atrial fibrillationon chronic Eliquis for anticoagulation therapy. 2.Hypertension. 3.History of diastolic LV dysfunction. 4.Chronic ventricular ectopy. Patient presents this admission noting having missed evening doses of his metoprolol on 2 consecutive days this weekend while traveling. Last evening noted heart rates to be more regular poor sleep, sense of warmth and slight chest tightness prior to bed and earlier this morning. No dizziness or lightheadedness no tachypalpitations. No fevers chills or unexplained infectio ns. No bleeding difficulties. Appetite and weight have been generally stable other with moderate fluctuation in weight now trending towards high end of usual. No worsening edema. No change in overall exercise tolerance. Blood pressure is usually controlled at home but elevated here on this presentation Allergies Allergy/AdvReac Type Severity Reaction Status Date / Time No Known Allergies Allergy NONE Unverified 05/29/22 09:41 Home Medications Medication Instructions Recorded Confirmed Type apixaban 5 mg tablet (Eliquis) 5 mg PO BID 05/29/22 05/29/22 History ascorbic acid (vitamin C) 500 mg 500 mg PO DAILY 05/29/22 05/29/22 History tablet (Vitamin C) aspirin 81 mg tablet,delayed 81 mg PO MOWEFR 05/29/22 05/29/22 History release cholecalciferol (vitamin D3) 10 10 mcg PO DAILY 05/29/22 05/29/22 History mcg (400 unit) capsule (Vitamin D3) metoprolol succinate 50 mg 25 mg PO PM 05/29/22 05/29/22 History tablet,extended release 24 hr metoprolol succinate 50 mg 50 mg PO DAILY 05/29/22 05/29/22 History tablet,extended release 24 hr omeg3-epa 150 mg-dha 100 mg-fish 1 cap PO QAM 05/29/22 05/29/22 History oil-flaxseed oil 333 mg-E 61 unit cap simvastatin 40 mg tablet 20 mg PO DAILY 05/29/22 05/29/22 History triamterene 37.5 1 tab PO UD PRN Edema 05/29/22 05/29/22 History mg-hydrochlorothiazide 25 mg tablet Patient History Medical History CKD (chronic kidney disease) stage 3, GFR 30-59 ml/min Diastolic dysfunction GERD (gastroesophageal reflux disease) History of cataract HLD (hyperlipidemia) HTN (hypertension) PAF (paroxysmal atrial fibrillation) Surgical History History of colonoscopy History of hernia repair History of laparoscopic cholecystectomy History of tonsillectomy Hx of cataract extraction Family History (Updated 05/29/22 @ 10:32 by Shu Call PA-C) Other Family history non-contributory Social History (Updated 05/29/22 @ 10:32 by Shu Call PA-C) Smoking Status: Never smoker Hx Alcohol Use: No Hx Substance Use: No Preferred Language: Georgian Communication Ability: Effective [employer] Required: No Beliefs That Will Affect Care: None marital status: / Current Living Situation: Family Current Living Situation Comment: with Alejandra-daughter Other Information That Helps Us Care for You: No Feels Safe at Home: Yes Safety Concerns: Feels Safe At This Time Assistive Devices: Glasses Review of Systems Review of Systems: All systems reviewed & are unremarkable except as noted in HPI & below Physical Exam Constitutional: WD/WN, vitals as above Eyes: PERRL, conjunctivae normal, anicteric sclerae ENMT: external ear and nose normal, oropharynx normal Neck: trachea midline, no thyromegaly Respiratory: normal respiratory effort, lungs clear to auscultation Cardiovascular: Rate/Rhythm: regular rate and + irregularly irregular Heart Sounds: normal S1 and normal S2; no gallop and no murmur Palpation: normal PMI Vessels: normal carotid upstroke and radial pulses present; no JVD and no carotid bruit Extremities: + edema (1+ with compression stockings) Gastrointestinal (Abdomen): normal bowel sounds, soft, nontender, no hepatosplenomegaly Musculoskeletal: no cyanosis or clubbing, extremities motor strength 5/5 Skin: no rashes, warm and dry Neurologic: PERRL, EOMI, accommodation nl, no face palsy, no dysarthria Psychiatric: A+Ox3, euthymic affect Results & Data ([facility]) Vital Signs (Past 12 Hours) Vital Signs Temp Pulse Pulse Resp BP BP Pulse Ox 05/29/22 11:48 36.3 C L 70 18 163/93 H 98 05/29/22 11:00 75 16 98 05/29/22 11:00 164/85 H 05/29/22 10:30 60 21 95 05/29/22 10:30 152/84 H 05/29/22 10:01 178/132 H 05/29/22 10:00 81 22 97 05/29/22 09:30 75 21 97 05/29/22 09:30 160/98 H 05/29/22 09:23 81 16 173/103 H 97 05/29/22 09:00 62 19 96 05/29/22 09:00 152/83 H 05/29/22 08:30 59 L 20 98 05/29/22 08:30 166/82 H 05/29/22 08:02 73 20 97 05/29/22 08:02 137/99 05/29/22 07:30 74 20 97 05/29/22 07:30 172/96 H 05/29/22 07:28 96 05/29/22 07:26 36.6 C 83 17 170/99 H 95 O2 Del Method 05/29/22 11:48 Room Air 05/29/22 11:00 Room Air 05/29/22 11:00 05/29/22 10:30 Room Air 05/29/22 10:30 05/29/22 10:01 05/29/22 10:00 Room Air 05/29/22 09:30 Room Air 05/29/22 09:30 05/29/22 09:23 Room Air 05/29/22 09:00 Room Air 05/29/22 09:00 05/29/22 08:30 Room Air 05/29/22 08:30 05/29/22 08:02 Room Air 05/29/22 08:02 05/29/22 07:30 Room Air 05/29/22 07:30 05/29/22 07:28 Room Air 05/29/22 07:26 Room Air Laboratory Results Laboratory Results - last 24 hr 05/29/22 05/29/22 05/29/22 07:35 07:35 07:35 WBC 4.86 RBC 5.05 Hgb 15.4 Hct 46.6 MCV 92.3 MCH 30.5 MCHC 33.0 RDW Std Deviation 42.9 RDW Coeff of Mark 12.7 Plt Count 154 MPV 10.0 Immature Gran % (Auto) 0.6 Neut % (Auto) 64.8 Lymph % (Auto) 20.2 [place] % (Auto) 10.5 Eos % (Auto) 2.9 Baso % (Auto) 1.0 Neut # (Auto) 3.15 Lymph # (Auto) 0.98 L [place] # (Auto) 0.51 Eos # (Auto) 0.14 Baso # (Auto) 0.05 Immature Gran # (Auto) 0.03 H Sodium 140 Potassium 3.6 Chloride 107 Carbon Dioxide 27 Anion Gap 6 BUN 16 Creatinine 1.04 Est Cr Clr Drug Dosing 66.9 Est GFR ( Amer) 75.5 Est GFR (Non-Af Amer) 65.2 BUN/Creatinine Ratio 15.4 Glucose 114 H Calcium 9.3 Magnesium Total Bilirubin 1.3 H AST 24 ALT 21 Alkaline Phosphatase 58 Troponin I High Sens 20.7 H Total Protein 6.9 Albumin 4.1 Globulin 2.8 Albumin/Globulin Ratio 1.5 Lipase 15 TSH Free T4 Urine Color Urine Appearance Urine pH Ur Specific [place] Urine Protein Urine Glucose (UA) Urine Ketones Urine Blood Urine Nitrite Urine Bilirubin Urine Urobilinogen Ur Leukocyte Esterase Urine WBC (Auto) Urine RBC (Auto) U Hyaline Cast (Auto) U Epithel Cells (Auto) Urine Bacteria (Auto) SARS-CoV-2, RNA, NAAT NEGATIVE 05/29/22 05/29/22 05/29/22 07:35 07:35 09:17 WBC RBC Hgb Hct MCV MCH MCHC RDW Std Deviation RDW Coeff of Mark Plt Count MPV Immature Gran % (Auto) Neut % (Auto) Lymph % (Auto) [place] % (Auto) Eos % (Auto) Baso % (Auto) Neut # (Auto) Lymph # (Auto) [place] # (Auto) Eos # (Auto) Baso # (Auto) Immature Gran # (Auto) Sodium Potassium Chloride Carbon Dioxide Anion Gap BUN Creatinine Est Cr Clr Drug Dosing Est GFR ( Amer) Est GFR (Non-Af Amer) BUN/Creatinine Ratio Glucose Calcium Magnesium 2.0 Total Bilirubin AST ALT Alkaline Phosphatase Troponin I High Sens Total Protein Albumin Globulin Albumin/Globulin Ratio Lipase TSH 5.125 H Free T4 0.84 Urine Color Yellow Urine Appearance Cloudy A Urine pH 5.5 Ur Specific [place] 1.012 Urine Protein Negative Urine Glucose (UA) Negative Urine Ketones Trace H Urine Blood Negative Urine Nitrite Negative Urine Bilirubin Negative Urine Urobilinogen Negative Ur Leukocyte Esterase Negative Urine WBC (Auto) 1-5 Urine RBC (Auto) 0-4 U Hyaline Cast (Auto) 1-5 U Epithel Cells (Auto) 5-10 H Urine Bacteria (Auto) Negative SARS-CoV-2, RNA, NAAT 05/29/22 12:58 WBC RBC Hgb Hct MCV MCH MCHC RDW Std Deviation RDW Coeff of Mark Plt Count MPV Immature Gran % (Auto) Neut % (Auto) Lymph % (Auto) [place] % (Auto) Eos % (Auto) Baso % (Auto) Neut # (Auto) Lymph # (Auto) [place] # (Auto) Eos # (Auto) Baso # (Auto) Immature Gran # (Auto) Sodium Potassium Chloride Carbon Dioxide Anion Gap BUN Creatinine Est Cr Clr Drug Dosing Est GFR ( Amer) Est GFR (Non-Af Amer) BUN/Creatinine Ratio Glucose Calcium Magnesium Total Bilirubin AST ALT Alkaline Phosphatase Troponin I High Sens 19.9 Total Protein Albumin Globulin Albumin/Globulin Ratio Lipase TSH Free T4 Urine Color Urine Appearance Urine pH Ur Specific [place] Urine Protein Urine Glucose (UA) Urine Ketones Urine Blood Urine Nitrite Urine Bilirubin Urine Urobilinogen Ur Leukocyte Esterase Urine WBC (Auto) Urine RBC (Auto) U Hyaline Cast (Auto) U Epithel Cells (Auto) Urine Bacteria (Auto) SARS-CoV-2, RNA, NAAT
[2022-05-29] MEDS: LOSARTAN POTASSIUM 25 MG TAB PO SCH (15:27)
[2022-05-29] MEDS: APIXABAN 5 MG TABLET PO SCH (20:36)
[2022-05-29] MEDS ORDERED: METOPROLOL SUCC 25MG EXT REL TAB PO SCH (21:00)
[2022-05-30 06:59] LABS: Basophils # (auto) 0.05 K/uL (0-0.2); Basophils % (auto) 0.9 %; Eosinophils # (auto) 0.16 K/uL (0-0.50); Eosinophils % (auto) 2.7 %; Hemoglobin 14.8 g/dl (14.0-18.0); Immature Granulocytes # (auto) 0.03 K/uL (0.00-0.02); Immature Granulocytes % (auto) 0.5 %; Lymphocytes # (auto) 1.05 K/uL (1.2-3.4); Lymphocytes % (auto) 17.9 %; Mean Corpuscular Hemoglobin 30.5 pg (25.0-34.0); Mean Corpuscular Hgb Conc 32.9 g/dL (32.0-36.0); Mean Corpuscular Volume 92.6 fL (80.0-100.0); Mean Platelet Volume 9.6 fL (9.4-12.4); Monocytes # (auto) 0.67 K/uL (0.24-0.82); Monocytes % (auto) 11.5 %; Neutrophils # (auto) 3.89 K/uL (1.4-6.5); Neutrophils % (auto) 66.5 %; Platelet Count 153 K/uL (130-400); RDW Coefficient of Variation 12.6 % (11.5-14.5); RDW Standard Deviation 42.8 fL (36.4-46.3); Red Blood Count 4.86 M/uL (4.63-6.08); White Blood Count 5.85 K/ul (4.8-10.8)
[2022-05-30 07:01] LABS: Albumin Globulin Ratio 1.5 (0.9-2); Albumin Level 3.8 gm/dl (3.4-5.0); BUN Creatinine Ratio 13.9 (10-20); Bilirubin,Total 1.1 mg/dl (0.2-1.0); Calcium 9.3 mg/dl (8.5-10.1); Chol HDL Ratio 3.1 (0-5); Creatinine Clr Calc Pharmacy 57.9 ml/min; Est GFR (African American) 66.9 ml/min; Est GFR (Non-African American) 57.7 ml/min; Globulin 2.6 gm/dl (2.5-4.0); Magnesium 1.9 mg/dl (1.7-2.4); Potassium 4.3 mmol/L (3.5-5.1); Total Protein 6.4 gm/dl (6.0-8.3)
[2022-05-30 07:58] LABS: Estimated Average Glucose 123 mg/dl; Hemoglobin A1C 5.9 % (4.5-5.6)
[2022-05-30] MEDS: APIXABAN 5 MG TABLET PO SCH (08:21)
[2022-05-30] MEDS: LOSARTAN POTASSIUM 25 MG TAB PO SCH (08:21)
[2022-05-30] MEDS ORDERED: ASCORBIC ACID 500 MG TAB PO SCH (09:00)
[2022-05-30] MEDS ORDERED: METOPROLOL SUCC 50MG EXT REL TAB PO SCH (09:00)
[2022-05-30] MEDS ORDERED: CHOLECALCIFEROL 400 UNITS 10 MCG TAB PO SCH (09:00)
[2022-05-30] MEDS ORDERED: SIMVASTATIN 20 MG TAB PO SCH (09:00)
[2022-05-30] MEDS ORDERED: OMEGA-3 (PURIFIED FISH OIL) 1 GM CAP PO SCH (09:00)
--- NOTE | 2022-05-30 10:54 | Cardiology Progress Note ---
Date of Service May 30, 2022 Assessment & Plan (1) PAF (paroxysmal atrial fibrillation): (2) HTN (hypertension): Plan Patient is a 86-year-old male with medical history as listed above notable for paroxysmal atrial fibrillation with borderline tachybradycardia syndrome, diastolic dysfunction, hypertension. Patient presents not feeling well after missing 2 doses of evening metoprolol while traveling over the weekend. No acute findings on echocardiogram or EKG that patient in atrial fibrillation with controlled ventricular response rate. Patient has not observed bradycardia arrhythmias but did experience 2 sensations of warm flushing chest throat tightness. Symptoms of concern may be secondary to missed doses of medication. Tachyarrhythmias not previously observed but may need to exclude bradycardia arrhythmia if lapsing in and out of atrial fibrillation Impression: 05/30/2022 patient currently asymptomatic feels well this morning and spontaneously converted to sinus rhythm without bradycardia arrhythmia or pauses Plan: Patient stable for discharge on current dose of metoprolol. Patient to stop vitamin C and omega-3 fish oil New medication losartan 25 mg/day for hypertension and afterload reduction. Patient to begin using trampoline hydrochlorothiazide 2 days/week, following sodium restriction We will arrange for Zio patch monitor 2 weeks post discharge. Cardiology office will contact Patient to keep scheduled cardiology appointment 07/14/2022 Admission and Anticipated Discharge Date Admission Date: May 29, 2022 Subjective Patient was seen and examined, chart, medications, telemetry reviewed. Feels well this morning no further symptoms or complaints. Spontaneously converted to sinus rhythm earlier today and remains in sinus time of examination. No fevers or chills. No chest pains or shortness of breath. Review of Systems Review of Systems: All systems reviewed & are unremarkable except as noted in Subjective Physical Exam Constitutional: WD/WN, vitals as above Eyes: PERRL, conjunctivae normal, anicteric sclerae ENMT: external ear and nose normal, oropharynx normal Neck: trachea midline, no thyromegaly Respiratory: normal respiratory effort, lungs clear to auscultation Cardiovascular: Rate/Rhythm: regular rate and regular rhythm Heart Sounds: normal S1 and normal S2; no gallop and no murmur Palpation: normal PMI V essels: normal carotid upstroke and radial pulses present; no JVD and no carotid bruit Extremities: + edema (1+ with compression stockings) Gastrointestinal (Abdomen): normal bowel sounds, soft, nontender, no hepatosplenomegaly Musculoskeletal: no cyanosis or clubbing, extremities motor strength 5/5 Skin: no rashes, warm and dry Neurologic: PERRL, EOMI, accommodation nl, no face palsy, no dysarthria Psychiatric: A+Ox3, euthymic affect Results & Data ([facility]) Vital Signs (Past 12 Hours) Vital Signs Temp Pulse Pulse Resp BP Pulse Ox O2 Del Method 05/30/22 07:00 60 05/30/22 08:11 36.5 C 63 20 133/76 95 Room Air 05/30/22 03:12 36.5 C 56 L 18 123/79 94 Room Air 05/29/22 23:05 36.4 C L 73 14 125/72 94 Room Air Laboratory Results Laboratory Results - last 24 hr 05/29/22 05/29/22 05/29/22 07:35 07:35 12:58 WBC RBC Hgb Hct MCV MCH MCHC RDW Std Deviation RDW Coeff of Mark Plt Count MPV Immature Gran % (Auto) Neut % (Auto) Lymph % (Auto) [place] % (Auto) Eos % (Auto) Baso % (Auto) Neut # (Auto) Lymph # (Auto) [place] # (Auto) Eos # (Auto) Baso # (Auto) Immature Gran # (Auto) Sodium Potassium Chloride Carbon Dioxide Anion Gap BUN Creatinine Est Cr Clr Drug Dosing Est GFR ( Amer) Est GFR (Non-Af Amer) BUN/Creatinine Ratio Glucose Estimat Average Glucose Hemoglobin A1c Calcium Magnesium 2.0 Total Bilirubin AST ALT Alkaline Phosphatase Troponin I High Sens 19.9 Total Protein Albumin Globulin Albumin/Globulin Ratio Triglycerides Cholesterol LDL Cholesterol, Calc VLDL Cholesterol, Calc HDL Cholesterol Cholesterol/HDL Ratio Free T4 0.84 05/29/22 05/30/22 05/30/22 18:30 06:16 06:16 WBC 5.85 RBC 4.86 Hgb 14.8 Hct 45.0 MCV 92.6 MCH 30.5 MCHC 32.9 RDW Std Deviation 42.8 RDW Coeff of Mark 12.6 Plt Count 153 MPV 9.6 Immature Gran % (Auto) 0.5 Neut % (Auto) 66.5 Lymph % (Auto) 17.9 [place] % (Auto) 11.5 Eos % (Auto) 2.7 Baso % (Auto) 0.9 Neut # (Auto) 3.89 Lymph # (Auto) 1.05 L [place] # (Auto) 0.67 Eos # (Auto) 0.16 Baso # (Auto) 0.05 Immature Gran # (Auto) 0.03 H Sodium 140 Potassium 4.3 Chloride 108 H Carbon Dioxide 28 Anion Gap 4 BUN 16 Creatinine 1.15 Est Cr Clr Drug Dosing 57.9 Est GFR ( Amer) 66.9 Est GFR (Non-Af Amer) 57.7 BUN/Creatinine Ratio 13.9 Glucose 104 H Estimat Average Glucose Hemoglobin A1c Calcium 9.3 Magnesium 1.9 Total Bilirubin 1.1 H AST 21 ALT 18 Alkaline Phosphatase 51 Troponin I High Sens 19.0 Total Protein 6.4 Albumin 3.8 Globulin 2.6 Albumin/Globulin Ratio 1.5 Triglycerides 93 Cholesterol 142 LDL Cholesterol, Calc 77 VLDL Cholesterol, Calc 19 HDL Cholesterol 46 Cholesterol/HDL Ratio 3.1 Free T4 05/30/22 06:16 WBC RBC Hgb Hct MCV MCH MCHC RDW Std Deviation RDW Coeff of Mark Plt Count MPV Immature Gran % (Auto) Neut % (Auto) Lymph % (Auto) [place] % (Auto) Eos % (Auto) Baso % (Auto) Neut # (Auto) Lymph # (Auto) [place] # (Auto) Eos # (Auto) Baso # (Auto) Immature Gran # (Auto) Sodium Potassium Chloride Carbon Dioxide Anion Gap BUN Creatinine Est Cr Clr Drug Dosing Est GFR ( Amer) Est GFR (Non-Af Amer) BUN/Creatinine Ratio Glucose Estimat Average Glucose 123 Hemoglobin A1c 5.9 H Calcium Magnesium Total Bilirubin AST ALT Alkaline Phosphatase Troponin I High Sens Total Protein Albumin Globulin Albumin/Globulin Ratio Triglycerides Cholesterol LDL Cholesterol, Calc VLDL Cholesterol, Calc HDL Cholesterol Cholesterol/HDL Ratio Free T4
--- NOTE | 2022-05-30 13:29 | Discharge Summary ---
Date of Service May 30, 2022 Admission HPI Per Admitting Provider This is an 86-year-old male who has a significant past medical history of PAF anticoagulated on Eliquis, HTN, HLD, CKD stage III, diastolic dysfunction, GERD, chronic ventricular ectopy who presents to ED secondary to ill feeling and lightheadedness for a few hours prior to arrival. His daughter is at bedside. Over the weekend he felt quite well. Him and his daughter went and stayed in [place] and went to a [employer] game. Yesterday, "I was a ball of energy." He did many tasks around the house and outside as he had the energy to do so. Last evening he started to begin to feel unwell. Throughout the night he felt very hot and described a sensation of having a, "hot chest," that also went to his neck. He denied any refugio chest pain or pressure. When his daughter went to work this morning he got up and felt generally lightheaded and off-balance. Because of this he summoned EMS. He states when EMS arrived he started to feel a bit better. He did take his medications this morning; however, he does admit over the weekend he did miss his afternoon dose of metoprolol on Sunday and Sunday and he split a dose of Eliquis in half to cover his evening dose on Sunday, but missed his morning dose on Sunday. He does have history of A. fib and is able to tell when he goes in and out of it. He states last week he went in approximately 5 times which is a lot more than usual. Other than this week and he is otherwise been compliant with his medications. No other recent illness. Denies fever, chills, sweats, syncope, lightheadedness, chest pain, shortness breath at rest, cough, hemoptysis, PND, orthopnea, nausea, vomiting, abdominal pain, change in bowel or urinary habits. He does have KIDD specifically with hills, but this is not uncommon. He does live at home with his daughter. He ambulates occasion with a cane but is otherwise independent. In ED patient made hemodynamically stable. 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 fib. He also mildly elevated troponin at 20.7. Admission Exam Per Admitting Provider Constitutional: WD/WN, vitals as above, NAD, sitting up in bed, pleasant, conversing easily Head: Normocephalic, Atraumatic Eyes: PERRL, conjunctivae normal, anicteric sclerae ENMT: slight hard of hearing, hearing device in place, external ear and nose normal, oropharynx normal Neck: trachea midline, no thyromegaly normal visual inspection Respiratory: normal respiratory effort, lungs clear to auscultation, no wheeze, rales, rhonchi. Normal insp/exp effort, no accessory muscle use Cardiovascular: IRR/IRR, no murmur, no edema Vessels: no JVD or carotid bruit Chest: normal inspection of chest Abdomen: normal bowel sounds, soft, nontender, no hepatosplenomegaly Musculoskeletal: no cyanosis or clubbing, AROM x 4 Skin: no rashes, warm and dry normal turgor Neurologic: PERRL, EOMI, accommodation nl, no face palsy, no dysarthria CN's II-XI intact bilaterally and moves all extremities Psychiatric: A+Ox3, euthymic affect : deferred Principal Diagnosis Paroxysmal A. fib associated with ill feeling and lightheadedness secondary to missed dose of metoprolol x2 Discharge Exam GENERAL: Alert and oriented x3. NAD, on RA. HEENT: No pallor, no icterus. Pupils equal, round and reactive to light. Oral mucosa moist. NECK: No JVD, no neck masses. HEART: S1 and S2 heard. Regular rate and rhythm. No murmur, no gallop. RESPIRATORY SYSTEM: Normal AP diameter. No accessory muscle use. No wheezing, no crackles. ABDOMEN: Soft, bowel sounds present, nontender, no distention. CENTRAL NERVOUS SYSTEM: No facial droop. Speech is clear. Obeys simple commands. Moves extremities. EXTREMITIES: No edema, no erythema seen. Discharge Data Allergies Allergy/AdvReac Type Severity Reaction Status Date / Time No Known Allergies Allergy NONE Unverified 05/29/22 09:41 Consultations 05/29/22 09:38 ED Decision to Admit Stat 05/29/22 10:25 Consult Cardiology Routine Ordered Studies 05/29/22 07:28 CT head/brain wo con Stat Hospital Course (1) PAF (paroxysmal atrial fibrillation): (2) Elevated troponin: (3) HTN (hypertension): (4) HLD (hyperlipidemia): (5) CKD (chronic kidney disease) stage 3, GFR 30-59 ml/min: Plan 86-year-old male who has a significant past medical history of PAF anticoagulated on Eliquis, HTN, HLD, CKD stage III, diastolic dysfunction, GERD, chronic ventricular ectopy who presents to ED secondary to ill feeling and lightheadedness for a few hours prior to arrival. He was managed for the following: PAF elevated troponin Was observed in telemetry, troponin trends minimally elevated then down trended. Admitting EKG with atrial fibrillation. Admitting echo with EF of 55 to 60%, mild concentric LVH. Patient reports improvement in his lightheadedness/dizziness. Patient converted into NSR around 7:15 AM on 05/30. Patient with no chest pain. Cardiology evaluated, continue home dose of metoprolol, losartan has been added. Patient to stop fish oil and vit C. Patient hemodynamically stable without any symptoms. #. Other chronic medical conditions: HTN, HLD, CKD 3 Home medications continued DNR/DNI PCP: Seamus Patient being discharged home with following instruction at the point of discharge: Follow-up with your primary care physician within a week time. Get your blood work magnesium and CMP done in a week time and have the results forwarded to your primary care physician Cardiology evaluated you while inpatient, losartan 25 mg daily has been added. Follow-up with cardiology office on 07/14/2022. Also cardiology recommended you for Zio patch monitoring, get in touch with your cardiology office as an outpatient to set zio patch monitor up. Continue to take metoprolol as prescribed. Take your medications as prescribed. Total Time Total Time Spent Total Time Spent (In Minutes): 35 Discharge Plan Discharge Items Patient Disposition: Home - Self-Care Reason For Visit: AFIB,ELEVATED TROPONIN Discharge Diagnosis: A. fib with slow ventricular response, associated with ill feeling and lightheadedness secondary to missed dose of metoprolol x2 Activity: Resume your previous activity Non-emergency contact: Primary Care Provider Call non-emergency contact if: you have any medication questions, your symptoms worsen and your temperature is above 101 Follow-up/Referrals: Dung Way MD [Primary Care Provider] - Diet: Heart Healthy and Lactose Intolerant Addtl Attending Provider Instructions: Follow-up with your primary care physician within a week time. Get your blood work magnesium and CMP done in a week time and have the results forwarded to your primary care physician Cardiology evaluated you while inpatient, losartan 25 mg daily has been added. Follow-up with cardiology office on 07/14/2022. Also cardiology recommended you for Zio patch monitoring, get in touch with your cardiology office as an outpatient to set zio patch monitor up. Continue to take metoprolol as prescribed. Take your medications as prescribed. Pending Studies at Discharge: No Stand-Alone Forms: [facility] [employer], Smoking Cessation Medications and DC Order Prescriptions: New losartan 25 mg Tablet 25 mg PO QAM Qty: 30 0RF Continued metoprolol succinate 50 mg tablet extended release 24 hr 50 mg PO DAILY metoprolol succinate 50 mg tablet extended release 24 hr 25 mg PO PM simvastatin 40 mg tablet 20 mg PO DAILY triamterene-hydrochlorothiazid 37.5-25 mg tablet 1 tab PO UD PRN (Reason: Edema) Rx Instructions: take 1-2tabs monthly as needed for swelling Eliquis 5 mg tablet 5 mg PO BID aspirin [Aspir-81] 81 mg Tablet,Delayed Release (Dr/Ec) 81 mg PO MOWEFR cholecalciferol (vitamin D3) [Vitamin D3] 10 mcg (400 unit) Capsule 10 mcg PO DAILY Discontinued ascorbic acid (vitamin C) [Vitamin C] 500 mg Tablet 500 mg PO DAILY [phone] [id number] Capsule 1 cap PO QAM Discharge Orders: Discharge Order (Routine); Ordered 05/30/22 Ordered By: Hoa Carnes Admission Data Admit Date/Time: 05/29/22 09:47 Attending Provider: Hoa Carnes Admit Provider: Alex Torres Primary Care Provider: Dung Way Other Providers: Himanshu Calderon ; Alex Torres
--- NOTE | 2022-05-30 17:13 | Electrocardiogram Report ---
Test Reason : Blood Pressure : / mmHG Vent. Rate : 056 BPM Atrial Rate : 054 BPM P-R Int : 000 ms QRS Dur : 094 ms QT Int : 430 ms P-R-T Axes : 000 -40 -41 degrees QTc Int : 414 ms Atrial fibrillation with slow ventricular response Left axis deviation Minimal voltage criteria for LVH, may be normal variant Nonspecific ST abnormality Abnormal ECG When compared with ECG of 29-MAY-2022 07:28, T wave inversion now evident in Inferior leads Confirmed by Ric Caldera ([id number]) on 05/30/2022 5:12:37 PM Referred By: REFERRED SELF Confirmed By:Ric Caldera
[2022-05-31] MEDS ORDERED: ASPIRIN 81 MG ECTAB PO SCH (10:30)
== END 2022-05-30 13:52 | disposition home or self-care (01) ==
LOC: ED 07:20 → 2S 07:20 → SUATTDRO 09:47 → 2S 11:24
DX: N18.30 Chronic kidney disease, stage 3 unspecified; Z79.82 Long term (current) use of aspirin; E78.5 Hyperlipidemia, unspecified; I13.0 Hypertensive heart and chronic kidney disease with heart failure and stage 1 through stage 4 chronic kidney disease, or unspecified chronic kidney disease; I50.30 Unspecified diastolic (congestive) heart failure; Z79.899 Other long term (current) drug therapy; Z79.01 Long term (current) use of anticoagulants; R79.89 Other specified abnormal findings of blood chemistry; I48.0 Paroxysmal atrial fibrillation